=== PATIENT | female | born 1970 | race Hispanic/Latino ===

== ENCOUNTER 2018-08-31 07:45 | Emergency (ER) | payer MEDICAID ==
--- NOTE | 2018-08-31 08:03 | ED PDOC ---
Arrival/HPI - General Chief Complaint: Chest Pain Time Seen by Provider: 08/31/18 07:53 Historian: Patient - History of Present Illness Narrative History of Present Illness (Text): 08/31/18 08:05 A 48 year old female, whose past medical history includes asthma and COPD, presents to the emergency department complaining of shortness of breath. Patient reports also experiencing cough and sharp chest pain starting 2 days ago. States feeling similar symptoms with asthma. Denies ever being admitted for asthma before. Patient denies any other complaints at this time. Also, patient mentions she is concerned about her symptoms due to her mother having from [place]. No PMD Time/Duration: < week (2 days) Symptom Onset: Sudden Symptom Course: Unchanged Past Medical History - Provider Review Nursing Documentation Reviewed: Yes - Infectious Disease Hx of Infectious Diseases: None - Pulmonary Hx Asthma: Yes Hx Chronic Obstructive Pulmonary Disease (COPD): Yes - Psychiatric Hx Substance Use: No - Surgical History Hx Cholecystectomy: Yes - Anesthesia Hx Anesthesia: Yes Hx Anesthesia Reactions: No Hx Malignant Hyperthermia: No Family/Social History - Physician Review Nursing Documentation Reviewed: Yes Family/Social History: CAD/[place] (mother) Smoking Status: Never Smoked Hx Alcohol Use: Yes Frequency of alcohol use: Socially Hx Substance Use: No Allergies/Home Meds Allergies/Adverse Reactions: Allergies No Known Allergies Allergy (Verified 08/31/18 07:56) Review of Systems - Physician Review All systems were reviewed & negative as marked: Yes - Review of Systems Respiratory: SOB, Cough Cardiovascular: Chest Pain (sharp) Physical Exam - Physical Exam Narrative Physical Exam (Text): Constitutional: No acute distress. Head: Normocephalic. Atraumatic. Eyes: PERRL. ENT: Moist mucous membranes. Neck: Supple. Cardiovascular: Regular rate. Chest: Chest wall tenderness. Respiratory: Clear to auscultation bilaterally. GI: Soft. Nontender. Nondistended. Back: No CVA tenderness. Musculoskeletal: No tenderness or swelling of extremities. Skin: No rash. Neurologic: Alert, no focal deficit. Mental Status: Positive for: Alert and Oriented X 3 Medical Decision Making ED Course and Treatment: 08/31/18 08:07 Impression: 48 year old female with shortness of breath, cough, and chest pain. Physical exam shows chest wall tenderness; no other acute findings on examination. Plan: -- EKG -- Chest X-ray -- Labs -- Duoneb -- Decadron Inj -- Reassess and disposition Progress Notes: CXR no consolidation. EKG NSR 80 bpm, no ST elevations. Troponin negative after days of chest pain. Discharged home, f/u PMD, return to ED for worsening breathing, fever, vomiting, chest pain, or any other problem. - Scribe Statement The provider has reviewed the documentation as recorded by the Marco A Mcclure Provider Scribe Attestation: All medical record entries made by the Scribe were at my direction and personally dictated by me. I have reviewed the chart and agree that the record accurately reflects my personal performance of the history, physical exam, medical decision making, and the department course for this patient. I have also personally directed, reviewed, and agree with the discharge instructions and disposition. Disposition/Present on Arrival - Present on Arrival Any Indicators Present on Arrival: No History of DVT/PE: No History of Uncontrolled Diabetes: No Urinary Catheter: No History of Decub. Ulcer: No History Surgical Site Infection Following: None - Disposition Have Diagnosis and Disposition been Completed?: Yes Diagnosis: COPD exacerbation, Chest wall pain Disposition: HOME/ ROUTINE Disposition Time: 09:07 Patient Plan: Discharge Condition: STABLE Discharge Instructions (ExitCare): Exacerbation of COPD, Chest Pain That Is Not Caused by the Heart (DC) Prescriptions: Azithromycin [Zithromax] 2 tab PO DAILY #6 tab Dexamethasone [Decadron] 5 tab PO ONCE #5 tab Ibuprofen [Motrin] 1 tab PO Q6 #30 tab Referrals: Jairo Teran MD [Family Provider] - Follow up with primary Forms: [facility] (Maltese)
[2018-08-31] MEDS: Albuterol-Ipratrop 3 mg / 0.5 (3 ml) UD IH SCH ×3 (08:15→08:49)
[2018-08-31 08:20] VITALS: O2SAT 100
[2018-08-31 08:23] LABS: BASO # 0.08 K/mm3 (0.0-2.0); BASO % 0.9 % (0.0-3.0); EOS # 1.4 (0.0-0.7); EOS % 14.7 % (1.5-5.0); GRAN # 4.46 (1.4-6.5); GRAN % 48.3 % (50.0-68.0); HEMOGLOBIN 14.9 g/dL (12.0-16.0); LYMPH # 2.7 (1.2-3.4); LYMPH % 29.2 % (22.0-35.0); MEAN CORPUSCULAR HGB CONC 35.1 g/dl (31.0-37.0); MEAN PLATELET VOLUME 9.3 fl (7.0-11.0); MONO # 0.6 (0.1-0.6); MONO % 6.9 % (1.0-6.0); RBC 4.66 10^6/uL (3.5-6.1); RED CELL DISTRIBUTION WIDTH 13.3 % (11.5-14.5); WHITE BLOOD COUNT 9.2 10^3/uL (4.5-11.0)
[2018-08-31 08:47] LABS: ALB/GLOB RATIO 1.1 (1.1-1.8); ALT/SGPT 18 U/L (7-56); AST/SGOT 19 U/L (14-36); BLOOD UREA NITROGEN 11 mg/dL (7-21); CALCIUM 9.3 mg/dL (8.4-10.5); GFR NON-AFRICAN AMERICAN > 60
[2018-08-31 09:00] LABS: TROPONIN I < 0.01 ng/mL
[2018-08-31 09:45] VITALS: BP 124/59; PULSE 85; RESP 19; TEMP 98
--- NOTE | 2018-08-31 09:52 | RAD ---
HISTORY: dyspnea COMPARISON: No prior. TECHNIQUE: Chest, one view. FINDINGS: LUNGS: No focal consolidation. Please note that chest x-ray has limited sensitivity for the detection of pulmonary masses. PLEURA: No significant pleural effusion identified. No definite pneumothorax . CARDIOVASCULAR: Heart size appears top normal. No significant atherosclerotic calcification present. OSSEOUS STRUCTURES: No acute osseous abnormality identified. VISUALIZED UPPER ABDOMEN: Unremarkable. OTHER FINDINGS: None. IMPRESSION: No focal consolidation.
--- NOTE | 2018-09-01 07:46 | CARD ---
APPROVED REPORT Date of service: 08/31/2018 EKG Measurement Heart [id number] <Conclusion> Normal sinus rhythm STTW changes c/w ischemia
== END 2018-08-31 09:44 | disposition home or self-care (01) ==
LOC: ED 07:45
DX: J44.1 Chronic obstructive pulmonary disease with (acute) exacerbation (principal); R07.89 Other chest pain; Z82.49 Family history of ischemic heart disease and other diseases of the circulatory system
CPT/HCPCS: 71045; 80053; 82550; 84484; 85025; 93005; 96374; 99283; J1100